=== PATIENT | female | born 1960 | race Caucasian/White ===

== ENCOUNTER 2021-01-17 16:29 | Observation (INO) | payer BC ==
[~2021-01-17] VITALS: Ht 162.6 cm; Wt 62.0 kg
[2021-01-17] MEDS ORDERED: IBUP-1022 PO (16:36)
--- NOTE | 2021-01-17 17:11 | REP ---
INDICATION: VISION CHANGES. COMPARISON: None. TECHNIQUE: Helical scanning is acquired. 5 mm axial images were reformatted. Coronal MPR images were generated. FINDINGS: Bone window settings demonstrate an intact bony calvarium. There is no evidence of skull fracture or incidental bony calvarial lesion. The visualized paranasal sinuses appear clear. No intraorbital abnormality is seen. On soft tissue window setting images; the lateral, third, and fourth ventricles are normal in size and position. Conroy-white differentiation pattern is normal above and below the tentorium. There are is no evidence of intracranial hemorrhage. No mass, edema, infarction, or midline shift is seen. No extra-axial fluid collection is appreciated. There is a small 5 mm low-density in the right basal ganglia inferiorly. This may be in a small old lacunar infarct or dilated perivascular space. IMPRESSION: Old lacunar infarct right basal ganglia versus dilated perivascular space. Otherwise negative CT study of the brain.. No acute intracranial abnormality. <Electronically signed by Herbert Herrera > 01/17/21 [id number]
--- NOTE | 2021-01-17 18:03 | ECGEPIP ---
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
[2021-01-17 18:04] LABS: BASO # 0.1 10^3/uL (0.0-0.2); BASO % 0.9 % (0.0-1.0); EOS # 0.2 10^3/uL (0.0-0.5); EOS % 3.7 % (0.0-3.0); HEMATOCRIT 39.4 % (36.0-47.0); HEMOGLOBIN 12.9 g/dl (12.0-15.5); LYMPH # 2.5 10^3/uL (1.5-5.0); LYMPH % 38.2 % (24.0-44.0); MEAN CORPUSCULAR HEMOGLOBIN 30.1 pg (27.0-33.0); MEAN CORPUSCULAR HGB CONC 32.7 g/dl (32.0-36.5); MEAN CORPUSCULAR VOLUME 92.1 fl (80.0-96.0); MONO # 0.3 10^3/uL (0.0-0.8); MONO % 4.3 % (2.0-8.0); NEUTROPHILS # 3.5 10^3/uL (1.5-8.5); NEUTROPHILS % 52.6 % (36.0-66.0); PLATELET COUNT, AUTOMATED 222 10^3/uL (150-450); RED BLOOD COUNT 4.28 10^6/uL (4.00-5.40); WHITE BLOOD COUNT 6.6 10^3/uL (4.0-10.0)
[2021-01-17 18:23] LABS: BLOOD UREA NITROGEN 15 MG/DL (7-18); CARBON DIOXIDE LEVEL 28 MEQ/L (21-32); CHLORIDE LEVEL 108 MEQ/L (98-107); CREATININE FOR GFR 0.81 MG/DL (0.55-1.30); GLOMERULAR FILTRATION RATE > 60.0 (>45); GLUCOSE, FASTING 81 MG/DL (70-100); POTASSIUM SERUM 3.7 MEQ/L (3.5-5.1); SODIUM LEVEL 142 MEQ/L (136-145)
[2021-01-17 18:24] LABS: CALCIUM LEVEL 9.4 MG/DL (8.8-10.2); CK-MB VALUE MASS 1.5 NG/ML (<3.6); CPK CREATINE PHOSPHOKINASE 149 U/L (26-192); MB/CK RELATIVE INDEX 1.01 (< OR =4); TROPONIN I < 0.02 NG/ML (< 0.10)
--- NOTE | 2021-01-17 18:40 | REP ---
INDICATION: CVA. COMPARISON: No comparison study. TECHNIQUE: Portable upright AP chest radiograph. FINDINGS: The lungs are well inflated and free of infiltrate. Pleural angles are sharp. Heart size is normal. Pulmonary vasculature is not increased. EKG electrodes are seen. IMPRESSION: No active disease. <Electronically signed by Herbert Herrera > 01/17/21 [id number]
[2021-01-17] MEDS ORDERED: ASPIRIN 325 MG TAB PO ONE (20:20)
[2021-01-17] MEDS ORDERED: ISOVUE-370 76% 100ML VIAL As Ordered ONE (20:44)
--- NOTE | 2021-01-17 21:20 | REPVR ---
PROCEDURE INFORMATION: Exam: CT Angiography Head With Contrast, Arteriography Exam date and time: 01/17/2021 8:52 PM Age: 61 years old Clinical indication: Visual disturbance; Additional info: CVA TECHNIQUE: Imaging protocol: Computed tomography angiography of the head with contrast. Exam focused on the arteries. 3D rendering (Not supervised by radiologist): MIP and/or 3D reconstructed images were created by the technologist. Radiation optimization: All CT scans at this facility use at least one of these dose optimization techniques: automated exposure control; mA and/or kV adjustment per patient size (includes targeted exams where dose is matched to clinical indication); or iterative reconstruction. Contrast material: ISOVUE 370; Contrast volume: 100 ml; Contrast route: INTRAVENOUS (IV); COMPARISON: MRI-Brain without Contrast 01/17/2021 8:09 PM FINDINGS: Ventricles, cisterns and sulci are symmetric and appropriate for age. No intracranial mass or focal mass effect. No intracranial hemorrhage, midline shift or acute territorial infarct. Anterior circulation: Normal contrast opacification and luminal caliber in the petrous, cavernous and supraclinoid internal carotid arteries. Normal appearance of the anterior cerebral artery branches and middle cerebral artery branches through the MCA trifurcations. No occlusion, high-grade focal stenosis or dissection. No aneurysm. Posterior circulation: Distal vertebral arteries enhance normally to the vertebrobasilar junction. Normally enhancing, normal caliber basilar artery, and normal superior cerebellar and posterior cerebral arteries. No occlusion, high-grade stenosis or aneurysm. Dural sinuses enhance normally. Bony structures show no acute fracture or destructive process. IMPRESSION: Unremarkable CT Angiogram of the head and [place]. ASPECTS ([place] Stroke Program Early CT Score) is 10. Electronically signed by: Enrique Reynoso On 01/17/2021 21:19:44 PM
--- NOTE | 2021-01-17 21:23 | REPVR ---
PROCEDURE INFORMATION: Exam: CT Angiography Neck With Contrast Exam date and time: 01/17/2021 8:52 PM Age: 61 years old Clinical indication: Visual disturbance; Additional info: CVA TECHNIQUE: Imaging protocol: Computed tomography angiography of the neck with contrast. 3D rendering (Not supervised by radiologist): MIP and/or 3D reconstructed images were created by the technologist. Radiation optimization: All CT scans at this facility use at least one of these dose optimization techniques: automated exposure control; mA and/or kV adjustment per patient size (includes targeted exams where dose is matched to clinical indication); or iterative reconstruction. Contrast material: ISOVUE 370; Contrast volume: 100 ml; Contrast route: INTRAVENOUS (IV); COMPARISON: MRI-Brain without Contrast 01/17/2021 8:09 PM FINDINGS: Right common carotid, cervical ICA and proximal ECA demonstrate contrast opacification with no occlusion, flow limiting stenosis, or intimal flap to suggest dissection. Left common carotid, cervical ICA and proximal ECA demonstrate contrast opacification, with no occlusion, flow limiting stenosis, or intimal flap to suggest dissection. Vertebral arteries demonstrate normal course to the level of the skull base and show no occlusion, flow limiting stenosis or dissection. No flow limiting stenosis or anomaly of the great vessel origins. No concerning asymmetric neck soft tissue abnormality. Multi-level cervical degenerative disc and articular pillar arthropathy is present. IMPRESSION: Unremarkable CT Angiogram of the neck. REFERENCES: NASCET CRITERIA. The degree of internal carotid artery stenosis is based on NASCET criteria. Normal is no stenosis. Mild is less than 50% stenosis. Moderate is 50-69% stenosis. Severe is 70% to 99% stenosis. Total occlusion is no detectable patent lumen. Electronically signed by: Enrique Reynoso On 01/17/2021 21:22:46 PM
--- NOTE | 2021-01-17 21:30 | REPVR ---
PROCEDURE INFORMATION: Exam: MR Head Without Contrast Exam date and time: 01/17/2021 8:33 PM Age: 61 years old Clinical indication: Visual disturbance TECHNIQUE: Imaging protocol: MR of the head without contrast. COMPARISON: CT Head without contrast 01/17/2021 4:39 PM FINDINGS: No abnormal restriction of diffusion to indicate acute CVA. Midline structures and cerebellar tonsillar position appear normal. Ventricles, cisterns and sulci are symmetric and normal for age. No intracranial mass, midline shift or abnormal extra-axial fluid. No acute intracranial hemorrhage. Mild pattern of increased T2 and flair signal in supratentorial white matter. Optic chiasm and pituitary infundibulum appear normal. Normal vascular flow voids in major intracranial arteries and dural venous sinuses. Mild frontal and ethmoid sinus mucosal thickening is present. Mastoid air cells are normally aerated. Optic globes and orbits are unremarkable. IMPRESSION: No acute intracranial abnormality. Minimal supratentorial white matter changes suggestive of chronic microangiopathic disease. Electronically signed by: Enrique Reynoso On 01/17/2021 21:29:36 PM
[2021-01-17 22:08] LABS: RSV AMPLIFICATION NEGATIVE (NEGATIVE)
[2021-01-17 23:19] LABS: C REACTIVE PROTEIN QUANTITATIV 0.33 MG/DL (0.00-0.30)
[2021-01-17] MEDS ORDERED: IBUP-1720 PO (23:42)
[2021-01-17 23:58] LABS: ERYTHROCYTE SEDIMENTATION RATE 13 mm/hr (0-30)
[2021-01-18 01:40] VITALS: BP 140/95
[2021-01-18] MEDS ORDERED: ACETAMINOPHEN TAB 650MG DOSE (2X325MG) PO PRN (01:45)
[2021-01-18] MEDS ORDERED: ONDANSETRON 4MG/2ML VIAL IV PRN (01:45)
[2021-01-18] MEDS ORDERED: SENOKOT S TAB PO PRN (01:45)
[2021-01-18] MEDS ORDERED: MOM 30ML SUSPENSION UDC PO PRN (01:45)
--- NOTE | 2021-01-18 01:45 | HPEPDOC ---
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 Patient went to the truck to get some papers but she could barely see it due to persistent blurred vision. Her blood pressure was okay 144 systolic but she was unable to focus and it lasted for about 2 hours and improved with covering 1 eye. she denied any dizziness or any other neurological symptoms. Vision improved when she looks to the right and diplopia resolves but worse when she looks to the left. There is no change in the diplopia when things are farther or closer, and she has no difficulty with looking down. She otherwise denies any history of alcohol abuse hypothyroidism diabetes rheumatological diseases such as lupus Sjogren's and no prior history of Guillain-Jesus giant cell arteritis or myasthenia gravis. Upon arrival in the ER at around 130 symptoms have resolved. MRI of the brain and CTA of the head were all negative. Patient was given aspirin. neurologist Dr. Nolen will see the patient in consult in the morning. Hospitalist was asked to admit the patient for binocular vertical diplopia. Patient also complained of cyclical fevers that happened last year every 3 months with low-grade temperatu res treated at urgent cares in [place] with azithromycin, COVID-19 testing were negative at that time. She currently denies any fevers this year. Binocular vertical diplopia -Differential diagnosis includes cranial nerve palsies, myasthenia gravis rheumatological diseases. -Check acetylcholine receptor antibody MU SK antibody LR P4 antibody antistriated muscle antibody patient will need single-fiber electro myelography as outpatient CT chest rule out thymoma if concerns for myasthenia gravis rule out autoimmune disease, check thyroid function test and serologic test for Sjogren's rheumatoid arthritis and systemic lupus erythematosus, and check for Lyme screen for possible tick paralysis. If negative findings on all these patient may be referred to an outpatient tool room machinist. Prior history of cyclical fevers -Check complement and immunoglobulin levels. - Vital Signs Vital Signs Date Time Temp Pulse Resp B/P (MAP) Pulse Ox O2 Delivery O2 Flow Rate FiO2 01/18/21 01:15 59 96 01/18/21 00:10 130/69 (89) 01/17/21 22:15 17 Room Air 01/17/21 16:30 98.0 Laboratory Data Labs 24H Laboratory Tests 2 01/17/21 17:32: Immature Granulocyte % (Auto) 0.3, Neutrophils (%) (Auto) 52.6, Lymphocytes (%) (Auto) 38.2, Monocytes (%) (Auto) 4.3, Eosinophils (%) (Auto) 3.7H, Basophils (%) (Auto) 0.9, Neutrophils # (Auto) 3.5, Lymphocytes # (Auto) 2.5, Monocytes # (Auto) 0.3, Eosinophils # (Auto) 0.2, Basophils # (Auto) 0.1, Nucleated Red Blood Cells % (auto) 0.0, Erythrocyte Sedimentation Rate 13, Activated Partial Thromboplast Time 30.0, Anion Gap 6L, Glomerular Filtration Rate > 60.0, Calcium Level 9.4, Total Creatine Kinase 149, Creatine Kinase MB 1.5, Creatine Kinase MB Relative Index 1.01, Troponin I < 0.02, C-Reactive Protein, Quantitative 0.33H 01/17/21 21:20: Coronavirus (COVID-19)(PCR) NEGATIVE, Influenza Type A (RT-PCR) NEGATIVE, Influenza Type B (RT-PCR) NEGATIVE, Respiratory Syncytial Virus (PCR) NEGATIVE CBC/BMP Laboratory Tests 01/17/21 17:32 Home Medications Scheduled PRN Ibuprofen (Ibuprofen) 200 Mg Tablet, 800 MG PO TID PRN for PAIN LEVEL 1-5 Allergies Coded Allergies: Penicillins (Verified Allergy, Unknown, 01/17/21) A-FIB/CHADSVASC A-FIB History Current/History of A-Fib/PAF?: No Age/Risk Factor Scoring CHADSVASC: CHADSVASC Response (Comments) Value Age Risk Factor Age < 65 years old 0 Gender Risk Factor Female 1 Hx of CHF No 0 Hx of HTN No 0 Hx of Stroke/TIA/or VTE No 0 Hx of Diabetes No 0 Hx of Vascular Disease No 0 Total 1 Treatment Treatment ordered: NONE GREGORY BOWDEN MD Jan 18, 2021 01:45
--- NOTE | 2021-01-18 01:51 | HPEPDOC ---
General Date of Admission Jan 17, 2021 at 16:30 Date of Service: Jan 17, 2021 Attending Physician: GREGORY BOWDEN MD Chief Complaint The patient is a 61-year-old female admitted with a reason for visit of Diplopia. Source: Patient Exam Limitations: No limitations Timing/Duration: Other (going on 12 hours) Severity: Moderate Associated Symptoms: Denies Symptoms History of Present Illness Ingris Smyth is a 61-year-old white female with no significant past medical history. Patient reports that she recently moved from [place] to the area in September. Patient reports that she worked at [employer] in [place] and now transferred to this [employer] which has been somewhat more disorganized than she is used to and it has been a source of stress for her. She reports at baseline she wears progressive glasses and first began wearing glasses at age 31. 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 Today,about 11/11:30 AM she noticed that as she was stocking material and it was suddenly blurry and she describes "seeing double one on top of the other". She then adjusted her glasses, but noticed that it did not clear. She reports a specific sensation of trouble with depth perception which made walking challenging. She denied dryness/irritation, trauma to the eye, dizziness, headache or spinning sensation. She reports her coworkers took her blood pressure and the systolic blood pressure she recalls was in the 140s. She reports that she had her hyekegvi-jw-jwy pick her up and she rested on the couch until her son who is a physician assistant superintendent for curriculum came home and then he brought her to the ER. Patient reports while lying on the couch ,about 3 hours from symptom onset, noticing a decrease of the double vision however at one point she noted that the vision had worsened in that timeframe where she saw 3 of her hplvoarm-gr-fru's head. Patient reports that she could tell the vision disturbance was getting better as she noticed that when she turned her head to the right side her vision was clear but when she turned to the left side was worse (while laying down). She also noted that when she covered either 1 of eyes- her vision returned to normal. She does not endorse that anyone told her that her eyes were moving during this period. Patient reports that when she stood up she felt her vision was normalizing, but then it would become doubled again. Patient denies any associated symptoms. She reports recently she has been at baseline except for the mild increased stress with the job transition and also some minor musculoskeletal aching of her neck about a week ago. Patient denies any headaches today and denies any history of similar events. Patient reports that her annual vision exam was over a year ago, but she did have a Lasik prescreening exam 7 months ago in which she reported that her eye doctor was very thorough with his assessment and noted no issues of underlying eye disease. Patient denies any significant family history of neurological or autoimmune conditions however she does note that her son did have cataracts and a retina detachment which left him blind in his left eye. She also does mention episodes over a year ago during height of covid having episodes of fevers and being treated with zpak OP , but was never positive for covid and last fever/aching sensations 12 months ago. Of note, patient reports improving symptoms during exam. CT head, CTA head and neck and MRI brain on revealing except for an old right basal ganglia lacunar infarct. Neurology was consulted in the ED and patient will be admitted to further address presenting concerns. Home Medications Scheduled PRN Ibuprofen (Ibuprofen) 200 Mg Tablet, 800 MG PO TID PRN for PAIN LEVEL 1-5, (Reported) Allergies Coded Allergies: Penicillins (Verified Allergy, Unknown, 01/17/21) Past Medical History Medical History Uterine prolapse, glasses, history of 3 vaginal births Surgical History Uterine prolapse repair 2017 Family History Significant Family History: Other (Son -cataracts and retinal detachment) Fatheropen heart surgery triple bypass, mothercardiomyopathy and EtOH abuse/cirrhosis, brotherarrhythmias, sonhypertension, EtOH and tobacco abuse, cataracts and retinal detachment, paternal grandmother -breast cancer, maternal grandmother- aneurysm of the brain, sisterdementia Social History * Smoker: Denies Alcohol: Denies Drugs: denies Recent Travel/Sick Contacts: Denies: Recent travel, Recent sick contacts Psychosocial History: No pertinent psych hx Patient lives with son and grandchildren. Son works as Geno. Patient herself works at [employer] recently moved from [place] in September to [facility] A-FIB/CHADSVASC A-FIB History Current/History of A-Fib/PAF?: No Review of Systems Constitutional: Denies: Chills, Fever, Night Sweats Eyes: Reports: Vision change (Diplopia); Denies: Pain, Conjunctivae inflammation, Eyelid inflammation, Redness ENT: Denies: Head Aches, Ear Pain, Dysphagia Skin: Denies: Rash, Lesions, Breakdown Pulmonary: Denies: Dyspnea, Cough Cardiovascular: Denies: Chest Pain, Palpitations, Orthopnea, Paroxysmal Noc. Dyspnea, Lt Headedness Gastrointestinal: Denies: Nausea, Vomiting, Abdominal Pain, Diarrhea Genitourinary: Reports: Other Symptoms (Patient reports sensation of uterine prolapse that she is aware of); Denies: Dysuria, Frequency, Incontinence, Retention Hematologic: Denies: Bruising, Bleeding Excessively Musculoskeletal: Reports: Neck Pain (Low neck musculoskeletal type pain); Denies: Back Pain, Joint Pain, Muscle Pain, Spasms Neurological: Denies: Weakness, Numbness, Change in speech, Confusion, Seizures Psych: Reports: Mood Normal; Denies: Anxiety, Depression, Memory Issues Physical Examination General Exam: Positive: Alert, No Acute Distress Eye Exam: Positive: PERRLA, Conjunctiva & lids normal, EOMI; Negative: Sclera icteric ENT Exam: Positive: Atraumatic, Mucous membr. moist/pink, Pharynx Normal Neck Exam: Positive: Supple; Negative: JVD, thyromegaly Chest Exam: Positive: Clear to auscultation, Normal air movement Heart Exam: Positive: Rate Normal, Regular Rhythm, Normal S1, Normal S2; Negative: Murmurs, Rubs Telemetry: Positive: No significant arrhythmia Abdomen Exam: Positive: Normal bowel sounds, Soft; Negative: Tenderness, Hepatospenomegaly Extremity Exam: Positive: Normal pulses; Negative: Clubbing, Cyanosis, Edema Skin Exam: Positive: Nl turgor and temperature; Negative: Breakdown, Lesion Neuro Exam: Positive: Normal Speech, Strength at 5/5 X4 ext, Normal Tone, Sensation Intact, Other (Did not assess gait) Psych Exam: Positive: Mental status NL, Mood NL, Oriented x 3 Vital Signs Vital Signs Date Time Temp Pulse Resp B/P (MAP) Pulse Ox O2 Delivery O2 Flow Rate FiO2 01/18/21 00:30 62 96 01/18/21 00:10 130/69 (89) 01/17/21 22:15 17 Room Air 01/17/21 16:30 98.0 Laboratory Data Labs 24H Laboratory Tests 2 01/17/21 17:32: Immature Granulocyte % (Auto) 0.3, Neutrophils (%) (Auto) 52.6, Lymphocytes (%) (Auto) 38.2, Monocytes (%) (Auto) 4.3, Eosinophils (%) (Auto) 3.7H, Basophils (%) (Auto) 0.9, Neutrophils # (Auto) 3.5, Lymphocytes # (Auto) 2.5, Monocytes # (Auto) 0.3, Eosinophils # (Auto) 0.2, Basophils # (Auto) 0.1, Nucleated Red Blood Cells % (auto) 0.0, Erythrocyte Sedimentation Rate 13, Activated Partial Thromboplast Time 30.0, Anion Gap 6L, Glomerular Filtration Rate > 60.0, Calcium Level 9.4, Total Creatine Kinase 149, Creatine Kinase MB 1.5, Creatine Kinase MB Relative Index 1.01, Troponin I < 0.02, C-Reactive Protein, Quantitative 0.33H 01/17/21 21:20: Coronavirus (COVID-19)(PCR) NEGATIVE, Influenza Type A (RT-PCR) NEGATIVE, I nfluenza Type B (RT-PCR) NEGATIVE, Respiratory Syncytial Virus (PCR) NEGATIVE CBC/BMP Laboratory Tests 01/17/21 17:32 RAD Interpretation STUDY: CXR Rad Actions: Report Reviewed RAD Interpretation: Normal STUDY: CT head Rad Actions: Report Reviewed, Discussed with the pt RAD Interpretation: Other Result Comments: (Nonacute right basal ganglia infarct) STUDY: CTA head Rad Actions: Report Reviewed RAD Interpretation: Normal STUDY: CTA neck Rad Actions: Report Reviewed RAD Interpretation: Normal STUDY: MRI brain RAD Interpretation: Normal Assessment/Plan 1. Diplopia 2/2 eyestrain and stress versus other underlying condition: Pt thankfully reporting improvement in symptoms. Pt denies flashes of light, peripheral vision, or floaters. Denied trauma, headache. Initial neuro imaging nonacute. Monitor patient, neurochecks every 4 hours, fall precautions. Appreciate neuro consult in a.m. Am labs Consider differentials of metabolic, autoimmune concerns; crp is elevated at 0. 33, esr 13. VANESSA, mag, b12, folate, GGT, TSH, A1c, acetylcholine receptor and IGM pend. Consider lyme disease with nerve paralysis, although pt denies outdoors. Ophthalmology appt upon d/c 2. Borderline hypertension: BP 160/75 during arrival, 130/65 during exam. Monitor BP, consider oral bed bug exterminator option if pt trend shows uncontrolled BP, JNC and ACC recommend given pt age <140/90mmHG. 3. Worklife stress: Pt encouraged to find stress relieving measures. DVT: Adonis score low risk, pt received asa CODE status: FULL Dispo: Home, anticipate 1-2 days. Plan / VTE VTE Prophylaxis Ordered?: No VTE Exclusion Mechanical Proph: Low Risk for VTE VTE Exclusion Pharmacological: At Low Risk for VTE KATEY QURESHI NP Jan 18, 2021 00:54
[2021-01-18 06:00] VITALS: BP 112/74
[2021-01-18 06:02] LABS: HEMATOCRIT 39.3 % (36.0-47.0); HEMOGLOBIN 12.9 g/dl (12.0-15.5); MEAN CORPUSCULAR HGB CONC 32.8 g/dl (32.0-36.5); MEAN CORPUSCULAR VOLUME 91.4 fl (80.0-96.0); PLATELET COUNT, AUTOMATED 229 10^3/uL (150-450); WHITE BLOOD COUNT 5.4 10^3/uL (4.0-10.0)
[2021-01-18 06:13] LABS: HEMOGLOBIN A1c 5.5 %
[2021-01-18 06:41] LABS: BLOOD UREA NITROGEN 13 MG/DL (7-18); C REACTIVE PROTEIN QUANTITATIV 0.34 MG/DL (0.00-0.30); CARBON DIOXIDE LEVEL 25 MEQ/L (21-32); CHLORIDE LEVEL 108 MEQ/L (98-107); COMPLEMENT C3 112 MG/DL (90-180); COMPLEMENT C4 25 MG/DL (10-40); CREATININE FOR GFR 0.72 MG/DL (0.55-1.30); FREE THYROXINE INDEX 2.9 % (1.3-4.8); GLOMERULAR FILTRATION RATE > 60.0 (>45); GLUCOSE, FASTING 83 MG/DL (70-100); IMMUNOGLOBULIN G 1030 MG/DL (681-1648); IMMUNOGLOBULIN M 77.5 MG/DL (40-230); MAGNESIUM LEVEL 2.3 MG/DL (1.8-2.4); POTASSIUM SERUM 3.8 MEQ/L (3.5-5.1); SODIUM LEVEL 142 MEQ/L (136-145); T UPTAKE 34 % (30-39); THYROXINE (T4) 8.4 UG/DL (4.5-12.0)
[2021-01-18 07:50] LABS: ERYTHROCYTE SEDIMENTATION RATE 14 mm/hr (0-30)
--- NOTE | 2021-01-18 08:54 | REP ---
INDICATION: DIPLOPIA ?MYASTHENIA R/O THYMOMA. COMPARISON: AP chest 01/17/2021 TECHNIQUE: Noncontrast scanning through the chest with coronal and sagittal reconstructions provided FINDINGS: Lung rosa show mild apical scarring bilaterally. Some dependent atelectatic change posteriorly in mid and lower lung zones, right slightly greater than left. No pleural effusion, acute infiltrate or mass. A small granuloma noted lateral segment right middle lobe, image 43. No pleural plaque or pleural calcification. Heart size not grossly enlarged. There is some mild pericardial thickening anteriorly. No pericardial effusion. The aorta is without gross aneurysm. It has a few scattered calcifications in descending portion. No mediastinal mass or pathologic sized adenopathy. Fluid in the superior pericardial recess noted. Nodes in the subcentimeter range are noted but not considered pathologic by CT size criteria. Tracheal airway intact. Some mild degenerative changes in the thoracic spine without compression deformity or destructive lesion. Visualized ribs, sternum, manubrium, clavicles, AC joints, scapulae and humeral heads were all grossly unremarkable. One sclerotic focus at the superior endplate margin of the T4 vertebral body anteriorly. No hiatal hernia. Visible portion of liver, spleen, adrenal glands and upper poles of kidneys are unremarkable. Visualized pancreas intact. Retained food in the stomach from recent meal. There is an hyperdense gallbladder, likely vicarious excretion IV contrast from yesterday's CT scans. No hepatosplenomegaly or focal lesion. IMPRESSION: 1. No CT evidence of a mediastinal mass or pathologic sized adenopathy. 2. Minor dependent atelectasis in the posterior mid and lower lung zones. Lungs otherwise unremarkable. 3. Bony thorax unremarkable and upper abdomen without acute finding. 4. No cardiomegaly pulmonary edema or other acute finding. Some mild pericardial thickening anteriorly. <Electronically signed by Otilio Avalos > 01/18/21 [id number]
[2021-01-18] MEDS: ASPIRIN 81 MG CHEW TABLET PO SCH (10:25)
[2021-01-18 11:19] LABS: VITAMIN B12 LEVEL 731 PG/ML (247-911)
[2021-01-18 11:30] LABS: FOLATE 16.4 NG/ML (>5.4)
[2021-01-18 13:50] VITALS: BP 98/63
[2021-01-18 20:30] LABS: ALBUMIN 3.7 GM/DL (3.2-5.2); ALT/SGPT 23 U/L (12-78); BILIRUBIN,DIRECT < 0.1 MG/DL (0.0-0.2); BILIRUBIN,TOTAL 0.3 MG/DL (0.2-1.0); TOTAL PROTEIN 6.8 GM/DL (6.4-8.2)
[2021-01-18 22:00] VITALS: BP 138/88
[2021-01-19 05:39] VITALS: BP 108/73
[2021-01-19 06:18] LABS: APPEARANCE, URINE CLEAR (CLEAR); BACTERIA, URINE AUTO NEGATIVE (NEGATIVE); BILIRUBIN, URINE AUTO NEGATIVE (NEGATIVE); BLOOD, URINE BLOOD NEGATIVE (NEGATIVE); COLOR, URINE YELLOW (YELLOW); GLUCOSE, URINE (UA) AUTO NEGATIVE (NEGATIVE); KETONE, URINE AUTO NEGATIVE (NEGATIVE); LEUKOCYTE ESTERASE, URINE AUTO 3+ (NEGATIVE); MUCUS, URINE SMALL (NEGATIVE); NITRITE, URINE AUTO NEGATIVE (NEGATIVE); PROTEIN, URINE AUTO NEGATIVE (NEGATIVE); RBC, URINE AUTO 2 /HPF (0-3); SQUAMOUS EPITHELIAL CELL UR AU 1 /HPF (0-6); UROBILINOGEN, URINE AUTO 0.2 mg/dL (0.0-2.0); WBC, URINE AUTO 24 /HPF (0-3)
[2021-01-19 06:50] LABS: HEMATOCRIT 41.3 % (36.0-47.0); HEMOGLOBIN 13.2 g/dl (12.0-15.5); MEAN CORPUSCULAR HEMOGLOBIN 29.6 pg (27.0-33.0); MEAN CORPUSCULAR VOLUME 92.6 fl (80.0-96.0); PLATELET COUNT, AUTOMATED 238 10^3/uL (150-450); RED BLOOD COUNT 4.46 10^6/uL (4.00-5.40); WHITE BLOOD COUNT 6.1 10^3/uL (4.0-10.0)
[2021-01-19 07:11] LABS: BLOOD UREA NITROGEN 16 MG/DL (7-18); CALCIUM LEVEL 8.6 MG/DL (8.8-10.2); CARBON DIOXIDE LEVEL 28 MEQ/L (21-32); CHLORIDE LEVEL 107 MEQ/L (98-107); CHOLESTEROL LEVEL 275 MG/DL (<200); CHOLESTEROL RISK RATIO 4.365 (<5); CREATININE FOR GFR 0.79 MG/DL (0.55-1.30); GLOMERULAR FILTRATION RATE > 60.0 (>45); GLUCOSE, FASTING 89 MG/DL (70-100); HDL CHOLESTEROL 63 MG/DL (>40); LDL CHOLESTEROL 194 MG/DL (<100); NON-HDL-C 212 MG/DL; POTASSIUM SERUM 3.8 MEQ/L (3.5-5.1); SODIUM LEVEL 140 MEQ/L (136-145); TRIGLYCERIDES LEVEL 88 MG/DL (<150)
[2021-01-19] MEDS: ASPIRIN 81 MG CHEW TABLET PO SCH (08:54)
[2021-01-19] MEDS ORDERED: ASPI81CH8 PO (08:56)
[2021-01-19] MEDS ORDERED: ATOR40TA75 PO (08:56)
[2021-01-19 11:12] LABS: ANTINUCLEAR ANTIBODIES DIRECT Negative (Negative)
--- NOTE | 2021-01-19 16:34 | DSES ---
DISCHARGE SUMMARY DATE OF ADMISSION: 01/17/2021 DATE OF DISCHARGE: 01/19/2021 DISCHARGE DIAGNOSES: 1. Diplopia, unspecified. 2. Hyperlipidemia. PROCEDURES PERFORMED DURING HOSPITALIZATION: None. CONSULTANTS ON THE CASE: Dr. Nolen of neurology. DISPOSITION Patient discharged home. CONDITION ON DISCHARGE: Stable with resolution of her symptoms. RELEVANT LABORATORIES OBTAINED DURING HOSPITAL STAY: White blood count 6.1, hemoglobin 13.2, hematocrit 41.3, platelet count 238,000. Sodium 142, potassium 3.8, chloride 108, bicarbonate 25, BUN 13, creatinine 0.72, calcium 9, magnesium 2.3, CRP was 0.34. Vitamin B12 of 731. Folate 16.4. TSH is 1.98, free T4 is 2.9. Cholesterol is 275, LDL is 194, non-HDL is 212, triglycerides 88. COVID and influenza swabs were negative. Urinalysis was unremarkable. Coagulations: PTT was 30.2. IgG was 1030. IGA was 124, IgM was 17.5. complement C3 was 112. Complement C4 was 25. Labs that are pending at the time of discharge are anti-cyclical citrullinated peptide, LRP4 autoantibody, Swanson antibody, anti-DS DNA, anti-MUSK antibody interpretation, striated muscle antibody, acetylcholine receptor keron antibody, and complement C2 as well as total complement CH50. These will need to be followed up as an outpatient. IMAGING STUDIES OBTAINED: CT scan of the head, which was unremarkable. Chest x-ray, which was unremarkable. MRI of the brain, which was unremarkable. CT of the head and neck, which showed no acute pathology. CT scan of the chest without contrast, which showed no acute pathology. DISCHARGE MEDICATIONS: - aspirin 81 mg daily - atorvastatin 40 mg daily - ibuprofen 800 mg three times a day as needed for pain DISCHARGE INSTRUCTIONS: Patient instructed to followup with primary care physician (PCP) in 1 week to followup the results of the send-out labs that are listed above in addition to results of echocardiogram that was done prior to her being discharged. The patient has also been recommended to followup with an liberal arts and humanities chair within the next 1-2 weeks' time. HOSPITAL COURSE: Ingris is a 61-year-old woman who was working at [employer], when she started developing blurred vision and presented to the emergency room. In the emergency room her symptoms had started to tristin. She underwent a workup, which was negative. This included a CT of the head and neck as well as MRI of the brain. Neurology was consulted and recommended admission to the hospital for further evaluation. There was concern about possible myasthenia gravis with some rheumatological diseases. Labs were sent off for these, and some of these are pending at the time of discharge. An echocardiogram was obtained prior to discharge; however, the results are unavailable to me at this time. Patient was seen by Dr. Reid. She was hospitalized. He recommended that she could be discharged from his standpoint. Patient has been recommended for ophthalmology evaluation also as an outpatient. She has been started on a baby aspirin as well as a statin. She is discharged home in stable condition. At the time of discharge, her temperature is 98.2, pulse 65, respirations 18, blood pressure 108/72, oxygen saturation is 95% on room air. General: The patient is alert and oriented times three. Head is atraumatic, normocephalic. Pupils symmetric and reactive to light. Extraocular movements are full in all directions. Patient is not having any visual field defects nor any diplopia. Oropharynx without exudate, erythema, or thrush. Neck is supple. Lung sounds are present without rales or rhonchi. Heart is S1, S2. Abdomen is soft, nontender. Extremities without any cyanosis or edema. Neurologic: Cranial nerves II-XII are grossly intact without any focal neurologic deficits. A total of 30 minutes was spent completing all discharge paperwork.
--- NOTE | 2021-01-20 08:49 | CR ---
CONSULTATION DATE: 01/18/2021 REFERRING PHYSICIAN: Marichuy Valero MD REASON FOR CONSULTATION: Double vision. HISTORY OF PRESENT ILLNESS: Ingris Smyth is a 61-year-old woman who moved from [place] to [place] in September of 2020. She was working at [employer] in [place] and transferred to [employer] in [place] which she found more disorganized than she is used to. This has been a source of stress for her. She uses progressive glasses and started using them at 8:30. 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 It was around 11:30 a.m. She felt blurred vision and started seeing double and triple on top of the other. She adjusted her glasses but it did not clear. She felt a sense of problems with depth perception when walking. She denied any headache, dysphagia, dysarthria, falls, loss of consciousness, head injuries. She has on and off neck pain. She states that she had neck pain last week due to a nonspecific viral infection. Her COVID testing was negative. She had cold-like symptoms before that. She states that her double vision lasted for eight hours and it improved. It would happen when keeping both eyes open. It will go away after closing one or the other eye. She also felt slight blurred vision when looking with the left eye. Today she feels better although still has slight blurred vision in the left eye. She has not seen an eye doctor in this region. DIAGNOSTIC STUDIES: MRI scan of brain, CTA of head and neck were reviewed and were unremarkable. CT scan of head was within normal limits. CBC and metabolic profile were normal. Vitamin B12 was 731. TSH was 1.9. ESR was 14. Her acetylcholine receptor antibody, Lyme antibody, MUSK antibody, LRP4 antibody, VANESSA, CCP antibodies are pending. PAST MEDICAL HISTORY: Uterine prolapse which was repaired in 2017. ALLERGIES: Penicillin. HOME MEDICATIONS: Ibuprofen. FAMILY HISTORY: Father with history of coronary artery disease and had heart bypass. Mother with history of cardiomyopathy. Mother also with history of cirrhosis due to alcohol abuse. SOCIAL HISTORY: She denies smoking, alcohol or illicit drugs. REVIEW OF SYSTEMS: All systems were reviewed and were found to be noncontributory except as mentioned in history of present illness. PHYSICAL EXAMINATION: VITAL SIGNS: Temperature 98.4, pulse 71, respiratory rate 16, blood pressure 98/63, 96% saturation on room air. HEART: Regular rate and rhythm. LUNGS: Clear to auscultation. ABDOMEN: Soft, nontender, nondistended. EXTREMITIES: No pedal edema. MUSCULOSKELETAL: No abnormalities. SKIN: No rash. NEUROLOGICAL: No signs of meningeal irritation. The patient is awake, alert, oriented to place, person and time. Normal speech, comprehension and repetition. Extraocular muscles are intact. No facial weakness. Tongue and uvula are midline. 5/5 strength in all four extremities. Deep tendon reflexes are 2+ throughout. Normal sensation throughout. Gait is normal. ASSESSMENT: 1. Double and triple vision of unclear etiology. 2. Rule out myasthenia although my index of suspicion is low. PLAN: 1. She should see ophthalmology. 2. Await results of her acetylcholine receptor antibody, MUSK antibody, LRP4 antibody, etc. 3. Follow with our office in two weeks after hospital discharge. Patient requested a couple of days off from work.
--- NOTE | 2021-01-21 11:19 | ECHO ---
ECHOCARDIOGRAM DATE OF PROCEDURE: 01/19/2021 Age: 61 Gender: Female Height: Weight: REFERRING PHYSICIAN: Marichuy Valero M.D. PATIENT LOCATION: Room 5144 REASON FOR THE TESTING: Transient ischemic attack (TIA). MEASUREMENTS: 2D Measurements: IVS 0.8 cm LV 4.2 cm LVPW 0.8 cm LA 2.3 cm Aorta 3.2 cm Doppler Measurements: Peak velocity across the LVOT 0.9 m/sec Mitral E 0.5 Mitral A 0.6 with a ratio of 0.8 2D COMMENTS: 1. Technically limited study due to poor acoustic window. 2. The left ventricular size is normal as well as the left ventricular wall thickness. Left ventricular systolic function is normal, it is rated as 55-65%. 3. Normal left atrium. Normal right atrium and right ventricle. 4. The atrial septum appeared to be normal without evidence of defect or shunt. 5. Normal aortic root. 6. No pericardial effusion seen. 7. Minimally calcified aortic valve with normal leaflet excursion. Normal mitral valve and tricuspid valve. The pulmonic valve and proximal pulmonary artery branches were not well visualized. DOPPLER: No significant valvular abnormalities detected, but trace mitral regurgitation. BUBBLE STUDY: Done with agitated normal saline and appeared to be negative for atrial congestion, but the pictures were not quite adequate for a bubble study. IMPRESSION: 1. Normal global left ventricular systolic function. There are some features of grade 1 left ventricular diastolic dysfunction manifested by abnormal relaxation. 2. Trace mitral regurgitation. 3. Consider a transesophageal echocardiogram for further evaluation. The pictures were not quite adequate for a bubble study.
[2021-01-22 09:07] LABS: DOPAMINE PLASMA <30 pg/mL (0-48); EPINEPHRINE PLASMA 26 pg/mL (0-62); NOREPINEPHRINE PLASMA 294 pg/mL (0-874)
== END 2021-01-19 12:25 | disposition home or self-care (01) ==
LOC: M ED 16:29 → UNDOADMOB 16:30 → M ED INP 16:30 → M MS5PR 01-18 01:40
PROVIDERS: ADMIT General Practice; ATTEND Internal Medicine
DX: H53.2 Diplopia (principal); E78.5 Hyperlipidemia, unspecified; Z79.899 Other long term (current) drug therapy; Z79.82 Long term (current) use of aspirin
CPT/HCPCS: 36415; 70450; 70496; 70498; 70551; 71045; 71250; 80048; 80061; 80076; 81001; 82383; 82550; 82553; 82607; 82746; 82784; 82977; 83036; 83516; 83519; 83735; 84436; 84443; 84479; 84484; 85025; 85027; 85652; 85730; 86038; 86140; 86160; 86162; 86200; 86225; 86235; 86255; 86617; 87631; 93005; 93041; 93306; 94760; 97161; 99285; Q9967

== ENCOUNTER → 2021-03-21 | Outpatient (CLI) | payer BC ==
[~2021-03-21] MED LIST: ASPI81CH8 PO; ATOR40TA75 PO; IBUP-1022 PO; IBUP-1720 PO
--- NOTE | 2021-03-29 11:56 | REPMRS ---
Patient History The patient states she has not had a clinical breast exam in over a year. Patient is postmenopausal. Family history of breast cancer at age 50 or over in paternal grandmother. Patient states no breast complaints today. Patient has signed MRS History Sheet. Digital Woman Screen Mammo: March 21, 2021 - Exam #: [id number] Bilateral CC and MLO view(s) were taken. Technologist: Elle Hsu, Technologist FINDINGS: There are scattered fibroglandular densities. Screening. Digital screening (2D) mammography was performed bilaterally in the CC and MLO projections. Additionally, breast tomosynthesis (3D mammography) was performed bilaterally in the CC and MLO projections. Todays exam was compared to the prior exam/exams. By history, the patient has no complaints of a palpable breast abnormality or other significant breast complaints. The breasts are unchanged in size and shape. There are no mayi-soft tissue densities or spiculated masses. There is no internal architectural distortion. Benign appearing calcifications are seen. There are no suspicious mayi-calcific clusters. Skin thickening or nipple retraction is not present. IMPRESSION: BI-RADS Category 2- Benign Findings. There is no evidence of malignant alteration of the breasts. Followup examination recommended in one year. The Volpara volumetric breast density category is B, there are scattered areas of fibroglandular densities. This mammogram was read with the assistance of [employer],an FDA approved computer aided detection system for mammography. The lifetime Tyrer-Cuzick score is 7.9 % Negative x-ray reports should not delay surgical consultation if a dominant or clinically suspicious mass is present. Not all breast cancers can be identified by mammography. Therefore, we recommend that you continue to perform regular breast self-examination and physical examination and then promptly contact your physician of any concerns or changes. Adenosis and dense breasts may obscure an underlying neoplasm. Assessment: BI-RADS/ACR category 2 mammogram. Benign Findings. Recommendation Routine screening mammogram of both breasts in 1 year. Electronically Signed By: Leobardo Ortiz DO 03/29/21 1706
== END ==
LOC: M WHC 14:48
PROVIDERS: ATTEND Nurse Practitioner Family
DX: Z12.31 Encounter for screening mammogram for malignant neoplasm of breast (principal)